=== PATIENT | female | born 1980 | race Caucasian/White ===

== ENCOUNTER 2020-09-22 10:00 | Emergency (ER) | payer OTHER, SELFPAY ==
[2020-09-22 10:25] VITALS: BP 122/85; PULSE 80; RESP 20; TEMP 37.1; O2SAT 98
--- NOTE | 2020-09-22 10:26 | ED.FEMALEGU ---
HPI - Female Genitourinary General Chief complaint: Urogenital-Female Stated complaint: uti Time Seen by Provider: 09/22/20 10:35 Source: patient Mode of arrival: ambulatory Limitations: no limitations History of Present Illness HPI Narrative: Ciara Sunshine is a 39 yo female with a PMH of depression, frequent uti, comes to express care with recurrent UTI symptoms that started on Wednesday. No feeling of depression is quite anxious and also has what appears to be contact dermatitis. Will treat urine if positive for UTI as well as contact dermatitis. No fever no nausea. Has had periods of diarrhea but she attributes this to the stress of the divorce Related Data Home Medications Medication Instructions Recorded Confirmed lamotrigine 25 mg BID 12/04/19 12/04/19 Allergies Allergy/AdvReac Type Severity Reaction Status Date / Time Sulfa (Sulfonamide Allergy Anaphylaxis Verified 09/22/20 10:47 Antibiotics) Review of Systems Review of Systems: Narrative: CONSTITUTIONAL: Denies fever, chills, sweats. EYES: Denies visual changes, redness, discharge. ENT: Denies rhinorrhea, congestion, sore throat, otalgia. CARDIOVASCULAR: Denies chest pain, palpitations, edema. RESPIRATORY: Denies dyspnea, wheezing, cough GASTROINTESTINAL: Denies abdominal pain, nausea, vomiting, diarrhea. GENITOURINARY: Has dysuria, no hematuria, abnormal discharge SKIN: Rash on arms scalp and back that is pruritic and started in the last day NEUROLOGIC: Denies numbness, or focal weakness. PSYCHIATRIC: Denies anxiety or depression. PMFSH Past Medical History Medical History Depression Frequent UTI No significant past medical history Surgical History Surgical History H/O section Family History Family History (Updated 09/22/20 @ 10:48 by Jerrica Corbin CNP) Other No acute medical problems Social History Social History Smoking status: Never smoker Alcohol intake: never Gender identity (if verbalized by the patient): Female Comments At time of signature, I agree with nursing past medical, surgical, social and family history. There is no relevant family history pertinent to the presenting complaint. Exam Narrative: Exam Narrative: GENERAL: This is a well-nourished, well-developed patient, in mild distress. HEAD: normocephalic, atraumatic. EYES: Sclera clear/white. Vision is grossly intact. EARS: External ears normal, auditory canals clear and without drainage, TMs normal without perforation. Hearing grossly intact. NOSE: External nose normal without nasal discharge, nares without redness, no rhinorrhea. THROAT: Mucous membranes moist, posterior pharynx NECK: Neck supple, CARDIOVASCULAR: Regular rate and rhythm without murmurs, gallops, or rubs. RESPIRATORY: Clear to auscultation. Breath sounds equal bilaterally. No wheezes, rales, or rhonchi. GASTROINTESTINAL: Abdomen soft, no suprapubic tenderness SKIN: warm, intact with red papular rash on inside of arms back lower back and scalp NEURO: awake, alert, and oriented to person, place and time. There were no obvious focal neurologic abnormalities. Steady gait EXTREMITIES: Normal range of motion. BACK: Nontender without deformity Course Course Emergency Course: Patient comes here with UTI symptoms and contact dermatitis-like rash Will be treated for contact dermatitis with Medrol Dosepak and Benadryl and her urine dipstick showed blood protein nitrite and leukocytes-started on Keflex Follow-up with primary care physician Vital Signs Vital signs: Vital Signs Temperature 98.7 F 09/22/20 10:25 Pulse Rate 80 09/22/20 10:25 Respiratory Rate 20 09/22/20 10:25 Blood Pressure 122/85 09/22/20 10:25 Pulse Oximetry 98 09/22/20 10:25 Temperature 98.7 F 09/22/20 10:25 Pulse Rate
== END 2020-09-22 10:55 | disposition home or self-care (01) ==
PROVIDERS: Emergency Provider Nurse Practitioner; PCP Nurse Practitioner Family
DX: N30.01 Acute cystitis with hematuria (principal); L23.9 Allergic contact dermatitis, unspecified cause; F32.9 Major depressive disorder, single episode, unspecified
CPT/HCPCS: 81003; 87077; 87086; 87088; 87186; 99213; G0463

== ENCOUNTER 2021-07-06 13:40 | Emergency (ER) | payer BC, SELFPAY ==
--- NOTE | ~2021-07-06 | XR_ITS ---
EXAMINATION: XR chest 2V DATE: 07/06/2021 14:15 INDICATION: Shortness of breath TECHNIQUE: PA and lateral views of the chest are obtained. COMPARISON: None available FINDINGS: The lungs are free of acute opacities. There is no pleural effusion or pneumothorax. The ca rdiomediastinal silhouette is normal. The visualized bones and soft tissues are unremarkable. IMPRESSION: 1. No acute cardiopulmonary abnormality. Reviewed, dictated and finalized at location A.
--- NOTE | 2021-07-06 13:52 | ED.URI ---
HPI - URI/Sore Throat General Chief Complaint: Upper Respiratory Infection Stated Complaint: Shortness of breathe,lightheaded Time Seen by Provider: 07/06/21 13:53 Source: patient and RN notes reviewed Mode of arrival: ambulatory Limitations: no limitations History of Present Illness HPI Narrative: 40-year-old female presents to the [facility] with complaints of shortness of breath and anxiety. Patient has an appointment with her primary care provider on Wednesday. States that when she was at [employer] the shortness of breath became worse. Also has had extreme hot and cold flashes. States it all started when she had Covid of 2020 and has continued however the last 48 hours has become worse. Patient reports yesterday when she was talking to over 100 people she became red, flushed and sweaty. Denies ever having chest pain. Denies fevers. Related Data Home Medications Medication Instructions Recorded Confirmed duloxetine 60 mg PO DAILY 07/06/21 07/06/21 lamotrigine 25 mg PO DAILY 07/06/21 07/06/21 norethindrone-e.estradiol-iron 1 tablet PO DAILY 07/06/21 07/06/21 [Sheree 24 Fe] Allergies Allergy/AdvReac Type Severity Reaction Status Date / Time Sulfa (Sulfonamide Allergy Severe Anaphylaxis Verified 07/06/21 14:07 Antibiotics) Review of Systems Review of Systems: All systems reviewed & are unremarkable except as noted in HPI and below Constitutional: Constitutional: Reports as per HPI, Reports chills and Reports fever(s) (Hot flashes) Eyes: Eyes: Reports no additional eye complaints ENT: Reports system reviewed and no additional complaints, except as documented, Denies dysphagia, Denies dizziness, Denies nasal congestion and Denies sore throat Cardiovascular: Cardiovascular: Reports no additional cardiovascular complaints and Denies chest pain Respiratory: Respiratory: Reports as per HPI, Denies chest congestion, Denies cough, Reports dyspnea and Denies wheezing Gastrointestinal: Gastrointestinal: Reports no additional gastrointestinal complaints, Denies abdominal pain, Denies nausea and Denies vomiting Musculoskeletal: Musculoskeletal: Reports no additional musculoskeletal complaints, Denies back pain, Denies arthralgias and Denies joint swelling Integumentary/Breasts: Skin/Breast: Reports system reviewed and no additional complaints, except as docu Neurologic: Reports system reviewed and no additional complaints, except as documented Psychiatric: Psychiatric: Reports no additional psychiatric complaints Endocrine: Endocrine: Reports no additional endocrine complaints Allergic/Immunologic: Allergic/Immunologic: Reports no additional allergic/immunologic complaints PMFSH Past Medical History Medical History (Updated 07/06/21 @ 19:10 by Milli Posada) Anxiety COVID-19 09/2020 Depression Frequent UTI No significant past medical history Surgical History Surgical History H/O section Family History Family History Other No acute medical problems Social History Social History Smoking status: Never smoker Alcohol intake: never Gender identity (if verbalized by the patient): Female Comments At the time of my signature, I reviewed and agree with the nursing past medical, surgical, social, and family history. There is no relevant family history pertinent to the patient complaint. Exam Const: General: healthy appearing, no acute distress and alert Nutritional Appearance: well nourished Orientation/consciousness: patient oriented x3 Limitations: no limitations HENMT: Head: normal to inspection Ears: external ears normal, TM's normal bilaterally and EAC's normal Eyes: Conjunctivae: conjunctivae normal Pupils: Equal, round and reactive pupils present Direct Ophthalmoscopy: no photophobia Neck: Neck: normal visual inspection, no lym
[2021-07-06 13:53] VITALS: BP 125/82; PULSE 98; RESP 16; TEMP 37; O2SAT 100
== END 2021-07-06 14:42 | disposition home or self-care (01) ==
PROVIDERS: Emergency Provider Nurse Practitioner; PCP Nurse Practitioner Family
DX: R06.00 Dyspnea, unspecified (principal); Z20.822 Contact with and (suspected) exposure to COVID-19; F41.9 Anxiety disorder, unspecified; F32.9 Major depressive disorder, single episode, unspecified; Z86.16 Personal history of COVID-19
CPT/HCPCS: 71046; 87426; 99213; C9803; G0463